=== PATIENT | female | born 1945 | race Two or more races ===

== ENCOUNTER 2022-05-11 19:12 | Emergency (ER) | payer SELFPAY ==
[~2022-05-11] VITALS: Ht 149.9 cm; Wt 66.2 kg
--- NOTE | 2022-05-11 19:30 | NUR ---
TO ER BED 3. [id number] FROM HOME C/O SYNCOPAL EPISODE WHILE AT [facility]. HIT SIDE OF HEAD. ADMITS TO 1 ALCOHOLIC DRINK. PT IS ALERT AND ORIENTED. RR EVEN AND NON LABORED. CONNECTED TO POX AND HEART MONITOR. VITAL SIGNS WITHIN LINITS. SAFETY PRECATIONS IN PLACE. AWAITING MD JETT
--- NOTE | 2022-05-11 19:39 | NUR ---
PT TAKEN TO CT SCAN
--- NOTE | 2022-05-11 20:29 | NUR ---
Patient does not wish to proceed with medical care recommended by Dr. Fonseca. Patient given information related to possible complications, up to and including , which could occur as a result of leaving the hospital at this time. Patient verbalizes understanding of risks involved due to leaving against medical advice. Patient has signed AMA form.
--- NOTE | 2022-05-11 20:36 | NUR ---
PT DEPARTED WITH DAUGHTER WHO UNDERSTANDS THE RISK OF LEAVING AMA
[2022-05-11 20:46] VITALS: BP 148/81
== END 2022-05-11 20:47 | disposition left against medical advice (07) ==
LOC: ER 19:16
DX: S00.83XA Contusion of other part of head, initial encounter (principal); R55 Syncope and collapse; I10 Essential (primary) hypertension; E11.9 Type 2 diabetes mellitus without complications; Z60.2 Problems related to living alone; W19.XXXA Unspecified fall, initial encounter; Y93.01 Activity, walking, marching and hiking; Y92.89 Other specified places as the place of occurrence of the external cause; Y99.8 Other external cause status
CPT/HCPCS: 70450-TC